=== PATIENT | female | born 1960 | race Caucasian/White ===

== ENCOUNTER 2018-09-25 10:51 | Inpatient (IN) | payer MEDICARE, MEDICAID ==
[2018-09-22 14:45] LABS: BASOPHILS # (AUTO) 0.02 x10^3/uL (0-0.1); BASOPHILS % (AUTO) 0 % (0-1); EOSINOPHILS # (AUTO) 0.11 x10^3/uL (0-0.4); EOSINOPHILS % (AUTO) 1 % (1-7); LYMPHOCYTES # (AUTO) 2.36 x10^3/uL (1-3.4); LYMPHOCYTES % (AUTO) 28 % (22-44); MD NO; MEAN CORPUSCULAR HEMOGLOBIN 32.7 pg (27.0-34.8); MEAN CORPUSCULAR HGB CONC 34.4 g/dL (32.4-35.8); MEAN CORPUSCULAR VOLUME 95.2 fL (80-100); MEAN PLATELET VOLUME 6.8 fL (7.4-10.4); MONOCYTES # (AUTO) 0.31 x10^3/uL (0.2-0.8); MONOCYTES % (AUTO) 4 % (2-9); NEUTROPHILS # (AUTO) 5.48 x10^3/uL (1.8-6.8); NEUTROPHILS % (AUTO) 66 % (42-75); PLATELET COUNT 261 x10^3/uL (130-400); RED BLOOD COUNT 4.65 x10^6/uL (3.82-5.3); RED CELL DISTRIBUTION WIDTH 13.2 % (9.6-15.2)
[2018-09-22 14:54] LABS: ALANINE AMINOTRANSFERASE 15 U/L (12-78); ALBUMIN 4.1 g/dL (3.4-5.0); ANION GAP 5 mmol/L (5-15); CALCIUM 9.2 mg/dL (8.5-10.1); CHLORIDE 105 mmol/L (98-107); CREATININE 0.66 mg/dL (0.55-1.02)
[2018-09-22 14:57] LABS: ALKALINE PHOSPHATASE 87 U/L (45-117); BILIRUBIN,TOTAL 0.3 mg/dL (0.2-1.0); TOTAL PROTEIN 7.7 g/dL (6.4-8.2)
[2018-09-22 15:04] LABS: INTERNATIONAL NORMALIZED RATIO 1.02 (0.93-1.1); PROTHROMBIN TIME 10.7 Seconds (9.6-11.5)
[2018-09-22 15:05] LABS: HEMOGLOBIN A1C 5.2 % (4.2-6.3)
[~2018-09-25] VITALS: Ht 152.4 cm; Wt 62.7 kg
[~2018-09-25 10:51] MED LIST: ACET-1600 PO; ALEN70TA6 PO; ASCO-96 PO; CALCIUM PO; CELE200C PO; CHOL200024 PO; DIVA-61 PO; DOCU100C33 PO; EPINEPHRINE 1 MG/ML, 1ML ONE; GLUC15006 PO; KETOROLAC 60 MG/2 ML ONE; LURA60TA PO; MELO7.5T31 PO; MULT-516 PO; MUPI22OI2 NAS; ONDA4TAB13 SL; OXYC5CAP2 PO; ROPIvacaine/PF 0.2%, 20 ML ONE; SERT100T32 PO; SODIUM CHLORIDE 0.9% 50 ML ONE; TRAM50TA2 PO; TRANEXAMIC ACID 100 MG/ML, 10ML ONE; VITAMIN E PO; [UNRECOGNIZED DRUG - OTHER] PO
[2018-09-25] MEDS ORDERED: LACTATED RINGERS 1,000 ML IV SCH (11:53)
[2018-09-25] MEDS ORDERED: ACETAMINOPHEN 500 MG TABLET PO ONE (12:00)
[2018-09-25] MEDS ORDERED: GABAPENTIN 300 MG CAPSULE PO ONE (12:00)
[2018-09-25] MEDS ORDERED: MIDAZOLAM 1 MG/ML, 2ML ONE (12:16)
[2018-09-25] MEDS ORDERED: FENTANYL PF 250 MCG/5ML ONE (12:16)
[2018-09-25] MEDS ORDERED: ROCURONIUM 10MG/ML,5ML ONE (13:44)
[2018-09-25] MEDS ORDERED: DEXAMETHASONE 4 MG/ML, 1ML ONE (13:44)
[2018-09-25] MEDS ORDERED: CEFAZOLIN 1,000 MG ONE (13:44)
[2018-09-25] MEDS ORDERED: SUCCINYLCHOLINE 20 MG/ML, 10ML ONE (13:44)
[2018-09-25] MEDS ORDERED: PROPOFOL 10 MG/ML, 20ML ONE (13:44)
[2018-09-25] MEDS ORDERED: OXYcodone IR 5MG TABLET PO PRN (14:00)
[2018-09-25] MEDS ORDERED: MAGNESIUM HYDROXIDE 8%, 30ML UDC PO PRN (14:00)
[2018-09-25] MEDS ORDERED: HYDROmorphone 1 MG/ML, 1ML IV PRN (14:00)
[2018-09-25] MEDS ORDERED: DIPHENHYDRAMINE 50 MG CAPSULE PO PRN (14:00)
[2018-09-25] MEDS ORDERED: ONDANSETRON 4 MG TABLET PO PRN (14:00)
[2018-09-25] MEDS ORDERED: ONDANSETRON 2MG/ML, 2ML IV PRN ×2 (14:00→15:30)
[2018-09-25] MEDS ORDERED: PROMETHAZINE 25 MG/ML, 1ML IM PRN (14:00)
[2018-09-25] MEDS ORDERED: TRANEXAMIC ACID 1,000 MG in SODIUM CHLORIDE 0.9% 100 ML IVPB ONE (14:00)
[2018-09-25] MEDS ORDERED: ALUMINUM/MAG/SIMETHICONE 30 ML UDC PO PRN (14:00)
[2018-09-25] MEDS ORDERED: SENNA/DOCUSATE TABLET PO PRN (14:00)
[2018-09-25] MEDS ORDERED: FENTANYL PF 100 MCG/2ML ONE (14:42)
[2018-09-25] MEDS ORDERED: ONDANSETRON ODT 8 MG PO PRN (15:30)
[2018-09-25] MEDS ORDERED: LORazepam 2 MG/ML, 1ML IVPush PRN (15:30)
[2018-09-25] MEDS ORDERED: LABETALOL 5MG/ML, 20ML IV PRN (15:30)
[2018-09-25] MEDS ORDERED: OXYcodone 5 MG/5 ML ORAL.SOL UDC PO PRN (15:30)
[2018-09-25] MEDS ORDERED: FENTANYL PF 100 MCG/2ML IV PRN (15:30)
[2018-09-25] MEDS ORDERED: DIAZEPAM 5 MG/ML, 2ML IVPush PRN (15:30)
[2018-09-25] MEDS ORDERED: PROMETHAZINE 25 MG/ML, 1ML IV PRN (15:30)
[2018-09-25] MEDS ORDERED: hydrALAzine 20 MG/ML, 1ML IV PRN (15:30)
[2018-09-25] MEDS ORDERED: HYDROmorphone 1 MG/ML, 1ML ONE (15:36)
[2018-09-25] MEDS ORDERED: OXYcodone 5 MG/5 ML ORAL.SOL UDC ONE (15:36)
[2018-09-25] MEDS: HYDROmorphone 2 MG/ML, 1ML IVPush PRN ×2 (15:41→15:58)
[2018-09-25 16:40] VITALS: BP 124/82
[2018-09-25] MEDS: D5%-0.45NACL+KCL 20MEQ 1,000 ML IV SCH (18:00)
[2018-09-25] MEDS: ASPIRIN 81 MG TABLET EC PO SCH (18:00)
[2018-09-25 18:31] VITALS: BP 108/72
[2018-09-25] MEDS ORDERED: CEFAZOLIN PMX 1GM/50ML 50 ML IVPB SCH (20:00)
[2018-09-25] MEDS: CEFAZOLIN PMX 1GM/50ML 50 ML IVPB SCH (21:39)
[2018-09-25] MEDS: DOCUSATE 100 MG CAPSULE PO SCH (21:40)
[2018-09-25] MEDS: SERTRALINE 100MG TABLET PO SCH (21:40)
[2018-09-25] MEDS: ACETAMINOPHEN 325 MG TABLET PO PRN (21:43)
[2018-09-25 23:56] VITALS: BP 96/62
[2018-09-26 03:59] VITALS: BP 96/63
[2018-09-26] MEDS: D5%-0.45NACL+KCL 20MEQ 1,000 ML IV SCH ×3 (04:00→21:04)
[2018-09-26] MEDS: CEFAZOLIN PMX 1GM/50ML 50 ML IVPB SCH (05:21)
[2018-09-26] MEDS: ACETAMINOPHEN 325 MG TABLET PO PRN (05:21)
[2018-09-26] MEDS: ASPIRIN 81 MG TABLET EC PO SCH ×2 (05:21→18:09)
[2018-09-26] MEDS ORDERED: DEXAMETHASONE 4 MG/ML, 1ML IVPush SCH (06:00)
[2018-09-26 07:18] VITALS: BP 115/78
[2018-09-26] MEDS: DOCUSATE 100 MG CAPSULE PO SCH ×2 (08:03→21:04)
[2018-09-26] MEDS: SERTRALINE 100MG TABLET PO SCH ×2 (08:03→21:04)
[2018-09-26] MEDS: TAMSULOSIN 0.4 MG CAP.ER.24H PO SCH (08:03)
[2018-09-26] MEDS: DIVALPROEX 500 MG TAB.ER.24H PO SCH (08:03)
[2018-09-26] MEDS: LURASIDONE 20 MG TABLET PO SCH (08:03)
[2018-09-26 12:50] VITALS: BP 117/79
[2018-09-26] MEDS: KETOROLAC 30 MG/1 ML IV SCH ×2 (15:09→21:04)
[2018-09-26 19:05] VITALS: BP 125/78
[2018-09-27 02:26] VITALS: BP 118/70
[2018-09-27] MEDS: ASPIRIN 81 MG TABLET EC PO SCH (05:37)
[2018-09-27] MEDS: KETOROLAC 30 MG/1 ML IV SCH (05:37)
[2018-09-27 07:04] VITALS: BP 116/75
[2018-09-27] MEDS: SERTRALINE 100MG TABLET PO SCH (08:53)
[2018-09-27] MEDS: TAMSULOSIN 0.4 MG CAP.ER.24H PO SCH (08:53)
[2018-09-27] MEDS: DOCUSATE 100 MG CAPSULE PO SCH (08:54)
[2018-09-27] MEDS: LURASIDONE 20 MG TABLET PO SCH ×2 (08:54→08:56)
[2018-09-27] MEDS: DIVALPROEX 500 MG TAB.ER.24H PO SCH (08:55)
[2018-09-27] MEDS: D5%-0.45NACL+KCL 20MEQ 1,000 ML IV SCH (10:00)
[2018-09-27 11:23] VITALS: BP 130/85
[2018-09-27 16:25] VITALS: BP 124/81
[2018-10-01] MEDS ORDERED: ALENDRONATE 70 MG TABLET PO SCH (06:30)
== END 2018-09-27 17:13 | disposition home or self-care (01) | DRG 470 ==
LOC: ORIP 10:51 → 4NOR 16:30
PROVIDERS: ADMIT Orthopaedic Surgery; ATTEND Orthopaedic Surgery
PROC: 0SR906Z Replacement of Right Hip Joint with Oxidized Zirconium on Polyethylene Synthetic Substitute, Open Approach (ICD-10-PCS; principal; 2018-09-25 13:15)
DX: M16.11 Unilateral primary osteoarthritis, right hip (principal); F20.0 Paranoid schizophrenia; M87.851 Other osteonecrosis, right femur; Q65.89 Other specified congenital deformities of hip; I10 Essential (primary) hypertension
CPT/HCPCS: 36415; 72170; 80053; 83036; 85014; 85018; 85025; 85610; 85730; 86850; 86900; 87081; 87806; 88304; 93005; C1713; G0378; J0171; J0690; J1100; J1170; J1885; J2250; J2704; J2795; J3010; C1776; G0475; J0330; J3480; J7120